=== PATIENT | male | born 1935 | race Caucasian/White ===

== ENCOUNTER → 2017-01-13 | Outpatient (CLI) | payer MEDICARE | LOC: HEART 5 11:10 | DX: J60 Coalworker's pneumoconiosis (principal); F17.210 Nicotine dependence, cigarettes, uncomplicated; R94.2 Abnormal results of pulmonary function studies | CPT/HCPCS: 94060; 94729 ==

== ENCOUNTER → 2017-01-16 | Outpatient (CLI) | payer MEDICARE | LOC: EXRD 13:13 | DX: J60 Coalworker's pneumoconiosis (principal) | CPT/HCPCS: 71020 ==